=== PATIENT | male | born 1995 | race Caucasian/White ===

== ENCOUNTER 2017-12-04 21:21 | Emergency (ER) | payer OTHER, MEDICAID | END 2017-12-04 22:59 | disposition home or self-care (01) | LOC: E/R 22:59 | DX: S99.912A Unspecified injury of left ankle, initial encounter (principal); S99.922A Unspecified injury of left foot, initial encounter; X58.XXXA Exposure to other specified factors, initial encounter; Y92.009 Unspecified place in unspecified non-institutional (private) residence as the place of occurrence of the external cause | CPT/HCPCS: 73610; 73630-LT; 99283-25 ==

== ENCOUNTER 2018-05-30 11:28 | Emergency (ER) | payer MEDICAID, OTHER ==
[2018-05-30] MEDS: IBUPROFEN 800 MG TAB PO (12:06)
== END 2018-05-30 12:26 | disposition home or self-care (01) ==
LOC: FTE 11:28
DX: S49.91XA Unspecified injury of right shoulder and upper arm, initial encounter (principal); W22.8XXA Striking against or struck by other objects, initial encounter
CPT/HCPCS: 73030; 73030-RT; 99283-25

== ENCOUNTER → 2019-03-01 | Emergency (ER) | payer SELFPAY, MEDICAID | END | disposition home or self-care (01) | LOC: FTE 11:08 | DX: S00.11XA Contusion of right eyelid and periocular area, initial encounter (principal); Y08.89XA Assault by other specified means, initial encounter; Y92.9 Unspecified place or not applicable | CPT/HCPCS: 70200; 99283-25 ==